=== PATIENT | female | born 2000 | race Caucasian/White ===

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

== ENCOUNTER → 2019-01-29 | Outpatient (CLI) | payer BC ==
--- NOTE | 2019-01-29 13:06 | MRI ---
MRI left knee without contrast INDICATION: Knee pain, sprain anterior pain status post fall 1.5 weeks ago TECHNIQUE: Noncontrast MR imaging left knee standard protocol COMPARISON: X-ray left knee August 2017 FINDINGS: Vague mild chondral thinning lateral patellar facet. Trace joint fluid. Cruciate ligaments are intact with the exception of mild edema in the posterior lateral aspect of the ACL indicating mild interstitial injury. No rupture. Anterior medial bundle is intact. PCL is intact. Extensor tendons are intact. Minimal prepatellar bursal edema. Collateral ligament are intact. No osteochondral lesions. No advanced arthrosis. No acute contusion or fracture IMPRESSION: No acute internal derangement Minimal chondrosis lateral patellar facet Trace joint fluid Mild interstitial edema posterior aspect of the ACL indicating low-grade interstitial injury without complete rupture or acute pivot shift Electronically signed by: Juliocesar Hale MD 01/29/2019 1:03 PM CDT
== END ==
LOC: MRI 10:45
PROVIDERS: ATTEND Orthopaedic Surgery
DX: S83.92XA Sprain of unspecified site of left knee, initial encounter (principal); M22.42 Chondromalacia patellae, left knee

== ENCOUNTER 2019-04-02 10:59 | Emergency (ER) | payer BC ==
[2019-04-02] MEDS: LACTATED RINGERS 1,000 ML IVS ONE (11:47)
--- NOTE | 2019-04-02 12:20 | ED.PDOC ---
History of Present Illness - General Chief Complaint: Allergic Reaction Stated Complaint: Pt stated R sided facial drooing & R hand tingling Time Seen by Provider: 04/02/19 12:07 Source: patient Exam Limitations: no limitations - History of Present Illness Initial Comments: Annie Arvizu 18 y/o female came to ER with history of achy throat ,fever hoarse ness for the last 5 days then was seen [facility] strep swab taken was negative was given rocephin injection and steroid and had onset of droopy face and bent wrist right side which went away.Presently asymptomatic. Timing/Duration: 4-6 hours Severity: moderate Improving Factors: nothing Worsening Factors: nothing Associated Symptoms: other - see hpi Allergies/Adverse Reactions: Allergies Codeine Allergy (Verified 04/02/19 11:24) Sulfa Antibiotics Allergy (Verified 04/02/19 11:24) Home Medications: Ambulatory Orders RX: Norgestimate-Ethinyl Estradiol [Ibh-[id number] 0.18/0.215/0.25 mg-25 Mcg] 1 tablet PO DAILY 04/02/19 RX: predniSONE 20 mg PO DAILY 5 Days #5 tab 04/02/19 Review of Systems - Review of Systems EENTM: States: see HPI Respiratory: States: see HPI Cardiology: States: no symptoms reported Gastrointestinal/Abdominal: States: no symptoms reported Genitourinary: States: no symptoms reported Musculoskeletal: States: no symptoms reported Skin: States: no symptoms reported Neurological: States: see HPI All other Systems: Reviewed and Negative, No Change from Baseline Past Medical History (General) - Patient Medical History Hx Seizures: No Hx Stroke: No Hx Dementia: No Hx Asthma: Yes - Exercise induced Hx of COPD: No Hx Cardiac Disorders: No Hx Congestive Heart Failure: No Hx Pacemaker: No Hx Hypertension: No Hx Thyroid Disease: No Hx Diabetes: No Hx Gastroesophageal Reflux: No Hx Renal Disease: No Hx of HIV: No Hx MRSA: No Surgical History: no surgical history - Vaccination History Hx Tetanus, Diphtheria Vaccination: No Hx Influenza Vaccination: No Hx Pneumococcal Vaccination: No Immunizations Up to Date: No - Social History Hx Tobacco Use: No Hx Alcohol Use: Yes Hx Substance Use: No Hx Substance Use Treatment: No Hx Depression: No Hx Physical Abuse: No Hx Emotional Abuse: No Hx Suspected Abuse: No - Female History Patient is a Female of Child Bearing Age (10 -59 yrs old): Yes Hx Last Menstrual Period: 03/13/19 Patient : No - Denies Family Medical History - Family History Mother Family History: No Known Living Status: Still Living Hx Family;Other: Thyroid goiter Father Living Status: Still Living Hx Family Hypertension: Yes Hx Family Diabetes: Yes Physical Exam - Physical Exam General Appearance: Alert, Comfortable, No apparent distress Eye Exam: bilateral normal Ears, Nose, Throat: hearing grossly normal, normal ENT inspection, pharyngeal erythema Neck: non-tender, full range of motion, supple Respiratory: chest non-tender, normal breath sounds Cardiovascular/Chest: normal peripheral pulses, regular rate, rhythm, no murmur Peripheral Pulses: radial,right: 2+, radial,left: 2+ Gastrointestinal/Abdominal: non tender, soft, no organomegaly Back Exam: no CVA tenderness, no vertebral tenderness Extremity: no pedal edema, no calf tenderness Neurologic: no motor/sensory deficits, alert, oriented x 3, other - speech fluent Skin Exam: normal color, warm/dry Lymphatic: no adenopathy Progress - Progress Progress: 04/02/19 12:24 Vital Signs - 8 hr 04/02/19 04/02/19 04/02/19 11:05 11:19 11:55 Temperature 100.1 F H Pulse Rate [L 115 H 110 H finger] Respiratory 18 18 18 Rate Blood Pressure 89/65 112/73 [L arm] O2 Sat by Pulse 99 97 Oximetry - Results/Orders Results/Orders: Vital Signs - 8 hr 04/02/19 04/02/19 04/02/19 11:05 11:19 11:55 Temperature 100.1 F H Pulse Rate [L 115 H 110 H finger] Respiratory 18 18 18 Rate Blood Pressure 89/65 112/73 [L arm] O2 Sat by Pulse 99 97 Oximetry - EKG/XRAY/CT XRAY: chest - no acute findings Departure - Departure Clinical Impression: Laryngopharyngitis, Tingling of right arm and right side of face, Hypokalemia, Hypomagnesemia Time of Disposition: 14:08 Disposition: Discharge to Home or Self Care Condition: Good Departure Forms: ED Discharge - Pt. Copy, Patient Portal Self Enrollment Instructions: High Potassium Diet, Viral Pharyngitis (DC) Referrals: Sebastien Magana MD [Primary Care Provider] - 1-2 Weeks Prescriptions: RX: predniSONE 20 mg PO DAILY 5 Days #5 tab Home Medications: Ambulatory Orders RX: Norgestimate-Ethinyl Estradiol [Ofq-Mu-Tmajfznz 0.18/0.215/0.25 mg-25 Mcg] 1 tablet PO DAILY 04/02/19 RX: predniSONE 20 mg PO DAILY 5 Days #5 tab 04/02/19 Additional Instructions: May take over the counter Potassium and magnesium pills one pill daily for 7 days;Return to Emergency room as needed;Follow up with gracie MORILLO 06 April 2019 for recheck as needed
[2019-04-02] MEDS: methylPREDNISolone SODIUM SUC 125 MG/2 ML VIAL IV ONE (12:31)
[2019-04-02] MEDS: POTASSIUM CHLORIDE 20 MEQ TAB PO ONE (13:05)
--- NOTE | 2019-04-02 13:08 | RAD ---
EXAM DESCRIPTION: Chest,2 Views CLINICAL HISTORY: 18 years Female, fever COMPARISON: None. TECHNIQUE: Frontal and lateral views of the chest. IMPRESSION: Cardiac silhouette is normal in size. No consolidation present. No pleural effusion or pneumothorax. Osseous structures are intact. Electronically signed by: Cassius Kurtz MD 04/02/2019 1:06 PM CDT
[2019-04-02] MEDS ORDERED: MAGNESIUM SULFATE PREMIX 2GM 50 ML IVPB ONE (13:45)
[2019-04-02] MEDS: MAGNESIUM SULFATE PREMIX 2GM 2 GM in PREMIX BAG 1 BAG IVPB ONE (13:48)
[2019-04-02 14:40] VITALS: O2SAT 99
[2019-04-02 14:55] VITALS: BP 117/82; TEMP 97.5
== END 2019-04-02 14:45 | disposition home or self-care (01) ==
LOC: ER 10:59
DX: J06.0 Acute laryngopharyngitis (principal); E83.42 Hypomagnesemia; E87.6 Hypokalemia; R20.2 Paresthesia of skin; J45.990 Exercise induced bronchospasm; Z88.5 Allergy status to narcotic agent; Z88.2 Allergy status to sulfonamides
CPT/HCPCS: 36415; 71046; 80053; 83605; 83735; 84703; 85025; J2930; J3475; J7120

== ENCOUNTER → 2019-04-06 | Outpatient (CLI) | payer BC | LOC: GMAJS 10:25 | PROVIDERS: ATTEND Physician Assistant | DX: E83.42 Hypomagnesemia (principal) ==

== ENCOUNTER → 2020-08-08 | Outpatient (CLI) | payer OTHER ==
--- NOTE | 2020-08-09 16:30 | US ---
US THYROID CLINICAL STATEMENT:20 years Female THYROMEGALY. COMPARISON: None TECHNIQUE: Transcutaneous scanning, grayscale and Doppler modes. FINDINGS: Size right thyroid lobe: 4.2 x 1.4 x 1.0 cm Size left thyroid lobe: 4.7 x 1.4 x 1.2 cm Size isthmus: 0.25 cm Estimated total number of nodules greater than or equal to 1 cm: None.. Nodule 1: Size: 0.8 x 0.7 x 0.6 cm Location: Left Upper Composition: solid or almost completely solid: 2 points Echogenicity: very hypoechoic: 3 points Shape: wider than tall: 0 points Margins: smooth: 0 points Echogenic foci: none: 0 points ACR Total Points: 5; ACR TI-RADS risk category: TR4 - moderately suspicious nodule. Nodule 2: Size: 0.4 x 0.3 x 0.3 cm Location: Right Mid Composition: spongiform: 0 points Echogenicity: hypoechoic: 2 points Shape: wider than tall: 0 points Margins: smooth: 0 points Echogenic foci: none: 0 points ACR Total Points: 2; ACR TI-RADS risk category: TR2 - nonsuspicious nodule. No dominant soft tissue mass, no fluid collection, no distinct cysts, the largest calcifications in the surrounding soft tissues. IMPRESSION: 1. Nodule 1: ACR TI-RADS 2017 Category TR4. Recommend: No further follow-up.. Recommendations based upon [employer] recommendations and ACR TI-RADS 2017 guidelines. Please see below*. 2. Nodule 2: ACR TI-RADS 2017 Category TR2. Recommend: No further follow-up. 3. Soft tissue in the thyroid gland is unremarkable. *ACR TI-RADS 2017 Recommendations for imaging follow-up of nodules (baseline study): TR1: No FNA or follow up TR2: No FNA or follow up TR3: FNA if >/= 2.5 cm, follow up if 1.5 - 2.4 cm in 1, 3, and 5 years TR4: FNA if >/= 1.5 cm, follow up if 1.0 - 1.4 cm in 1, 2, 3, and 5 years TR5: FNA if >/= 1.0 cm, follow up if 0.5 - 0.9 cm every year for 5 years ACR TI-RADS recommends that no more than two nodules with the highest ACR TI-RADS total point should be biopsied and no more than four nodules should be followed. These recommendations do not apply to patients with increased risk for thyroid cancer or patients with symptomatic thyroid disease. Electronically signed by: Bk Varela MD 08/09/2020 4:28 PM CDT
== END ==
LOC: US 11:49
PROVIDERS: ATTEND Family Medicine
DX: E01.0 Iodine-deficiency related diffuse (endemic) goiter (principal)

== ENCOUNTER → 2020-08-08 | Outpatient (CLI) | payer OTHER | LOC: GMAM 13:00 | PROVIDERS: ATTEND Family Medicine | DX: E01.0 Iodine-deficiency related diffuse (endemic) goiter (principal) ==